=== PATIENT | male | born 1975 | race Caucasian/White ===

== ENCOUNTER 2023-08-01 07:23 | Day surgery (SDC) | payer OTHER ==
[2023-08-01] MEDS: Ringers Lactate 1,000 ML IV ONE (07:50)
[2023-08-01] MEDS ORDERED: LIDOCAINE 1% MPF 5 ML VIAL ONE (08:27)
[2023-08-01] MEDS ORDERED: propofoL 200 MG/20 ML VIAL IV ONE ×2 (08:27→09:10)
[2023-08-01 10:52] VITALS: BP 130/84; TEMP 97; O2SAT 96
--- NOTE | 2023-08-01 14:27 | EKG ---
Test Date: 2023-08-01 Test Time: 08:42:31 [place]: BOB MEASUREMENT RESULTS: Intervals: Rate: 63 VA: 162 QRSD: 84 QT: 402 QTc: 411 [place]: P: 39 VA: 162 QRS: -4 T: 31 INTERPRETIVE STATEMENTS: Normal sinus rhythm Normal ECG No previous ECG available for comparison Electronically Signed On 08-01-23 14:25:57 [employer] by Aryan Allen
== END 2023-08-01 10:00 | disposition home or self-care (01) ==
LOC: OR 07:23
PROVIDERS: ATTEND Surgery
PROC: 0DBN8ZX Excision of Sigmoid Colon, Via Natural or Artificial Opening Endoscopic, Diagnostic (ICD-10-PCS; principal; 2023-08-01 09:15)
DX: K62.5 Hemorrhage of anus and rectum (principal); I10 Essential (primary) hypertension; K64.4 Residual hemorrhoidal skin tags; K64.8 Other hemorrhoids; K57.30 Diverticulosis of large intestine without perforation or abscess without bleeding; D12.7 Benign neoplasm of rectosigmoid junction; D12.5 Benign neoplasm of sigmoid colon
CPT/HCPCS: 93005; 88305; 45385; J2704 ×2; J2001; J7120; 88304

== ENCOUNTER 2023-08-26 11:23 | Day surgery (SDC) | payer OTHER ==
[2023-08-24 11:32] LABS: Absolute Basophils 0.1 K/uL (0-0.5); Absolute Eosinophils 0.1 K/uL (0-0.5); Absolute Lymphocytes (CBC) 1.8 K/uL (0.7-4.9); Absolute Monocytes 0.6 K/uL (0.1-1.3); Absolute Neutrophil 3.5 K/uL (1.8-8.0); Basophils % 0.8 % (0-1.3); Eosinophils % 1.2 % (0-4.4); Hematocrit 43.4 % (39.6-49.0); Hemoglobin 15.2 g/dL (13.6-17.9); Lymphocytes % 29.4 % (15.3-44.8); MCH 30.2 pg (27.0-35.0); MCV 86.3 fL (80-100); MPV 6.5 fL (7.6-11.3); Monocytes % 9.4 % (3.3-12.3); Neutrophils % 59.2 % (41.7-73.7); Nucleated Red Blood Cells % 0.1 % (0-0); Platelets 254 thou/uL (152-406); RBC Red Blood Cell Count 5.03 M/uL (4.33-5.43); Red Cell Distribution Width 12.8 % (12.1-15.2)
--- NOTE | 2023-08-24 12:38 | RAD REPORT ---
EXAM DESCRIPTION: RAD - Chest Pa And Lat (2 Views) - 08/24/2023 11:41 am CLINICAL HISTORY: Pre op pending hernia repair. Hypertension COMPARISON: No Comparisons> TECHNIQUE: PA and lateral views of the chest were obtained. FINDINGS: The lungs are clear. Heart size is normal and central vasculature is within normal limits. No pleural effusion or pneumothorax seen. No acute bony finding noted. IMPRESSION: No acute cardiopulmonary process.
[2023-08-26] MEDS ORDERED: BUPIVACAINE 0.5% PF 10 ML VIAL ONE (11:42)
[2023-08-26] MEDS ORDERED: FENTANYL CITR 100 MCG/2 ML ONE (11:58)
[2023-08-26] MEDS ORDERED: dexAMETHasone 10 MG/ML VIAL ONE (11:58)
[2023-08-26] MEDS ORDERED: propofoL 200 MG/20 ML VIAL IV ONE (11:58)
[2023-08-26] MEDS ORDERED: KETAMINE HCL IN 0.9 % NACL 50 MG/5 ML SYRINGE IV ONE (11:58)
[2023-08-26] MEDS ORDERED: ONDANSETRON 4 MG/2 ML VIAL ONE (11:58)
[2023-08-26] MEDS ORDERED: ROCURONIUM 50 MG/5 ML VIAL IV ONE (11:58)
[2023-08-26] MEDS ORDERED: LIDOCAINE 1% MPF 5 ML VIAL ONE (11:58)
[2023-08-26] MEDS ORDERED: KETOROLAC 30 MG/ML INJ ONE (11:58)
[2023-08-26] MEDS ORDERED: MIDAZOLAM HCL 2 MG/2 ML INJ ONE (11:58)
[2023-08-26] MEDS: Ringers Lactate 1,000 ML IV ONE (12:00)
[2023-08-26] MEDS: CEFAZOLIN SODIUM 1 GM/VIAL ONE (13:15)
[2023-08-26] MEDS ORDERED: SUGAMMADEX SODIUM 200 MG/2 ML VIAL IV ONE (14:08)
--- NOTE | 2023-08-26 15:20 | P.BOP ---
Preoperative diagnosis: tender right inguinal hernia Postoperative diagnosis: same Primary procedure: Laparoscopic repair of tender right inguinal hernia with mesh Estimated blood loss: <10cc Specimen: none Findings: right inguinal hernia Anesthesia: General Complications: None Drain(s): Other Implants: 3D mesh Transferred to: Recovery Room Condition: Good
[2023-08-26] MEDS: CODEINE 30MG/APAP 300MG TAB ONE (16:00)
[2023-08-26 17:07] VITALS: BP 128/80; TEMP 97.1; O2SAT 100
--- NOTE | 2023-08-26 19:01 | DS ---
Date of Discharge: 08/26/2023 Diagnosis: Tender right inguinal hernia. Procedure: Laparoscopic repair of tender right inguinal hernia with mesh. Disposition: Home. Activity: As tolerated. No heavy lifting. Plan: Follow up in my office in 1 week. Call for an appointment at [phone]. Keep area dry for 48 hours, then may shower. Keep Steri-Strip intact. Cold compress to the right inguinal region for 24 hours. ANJEL/HALEY Voice ID: [id number] Report ID: [id number]
--- NOTE | 2023-08-26 19:01 | OP ---
Date of Procedure: 08/26/2023 Surgeon: Ang Syed MD Preoperative Diagnosis: Tender right inguinal hernia. Postoperative Diagnosis: Tender right inguinal hernia. Procedure: Laparoscopic repair of tender right inguinal hernia with mesh. Estimated Blood Loss: Less than 10 cc. Findings: Right inguinal hernia. Anesthesia: General plus local. Implant: 3D mesh. Indications For Procedure: This is a case of a male, who came to us with a tender right inguinal her pooja. The benefits, alternatives, and risks of laparoscopic, possible open repair fully explained, wh ich include, but not limited to, infection, bleeding, damage to adjacent structures, anesthesia compl ication, recurrence, OH, and even . He also understands this may not relieve any symptoms. He might need more than one surgical intervention. He understand the intention of using mesh in that re gion. The pros and cons of mesh placement were discussed with the patient. All the questions were a nswered to his satisfaction. He signed a consent. The area of concern was marked by me and the brittnee ent in the holding room. Description Of Procedure: Patient was brought to the operating room, placed in supine position. Ane sthesia was done without complication. Abdominal area was prepped and draped in the usual sterile fa shion. Marcaine 0.5% was injected for local anesthetic after a time-out. Incision was carried down until we found the anterior rectus sheath that was opened on the right side. The muscle was retracte d laterally to expose the posterior rectus sheath. The extraperitoneal space was gently developed wi th the help of blunt dissection and a balloon tipped trocar was placed in that region and inflated un beth direct visualization with the camera on the trocar. This was directed toward the pubic symphysis . The balloon was deflated and removed. The area was insufflated to create the extraperitoneal spac e. With the camera in, a 5 mm trocar was placed at the area of the pubis symphysis and another one h alfway between the first and the second one. The preperitoneal space was further developed by exposi ng the inferior epigastric vessels keeping them anterior. The Antwan's ligament was dissected latera lly to a junction with the iliac veins avoiding damage. The dissection continued inferiorly to the i liopubic tract with care to avoid damage to the femoral branch of the genitofemoral nerve and lateral femoral cutaneous nerve. The cord structures were carefully skeletonized. The hernia was identifie d, reduced by gentle traction into the peritoneal cavity. At that moment, I proceeded to introduce i nto the area, a 3D mesh medium size rolled in a complex cylinder and placed along the inferior aspect of the working space. The mesh will cover direct, indirect spaces. The mesh was secured in place l ateral and superior to the iliopubic tract and inferior and medial to the Antwan's ligament with the help of [employer]. After securing hemostasis, we proceeded then to stop the insufflation and allowed the air to escape by holding the mesh in place. The trocars were removed. Anterior rectus sheath wa s closed with the #1 Vicryl and the skin was approximated with 3-0 chromic. The sponge counts and in strument counts were correct. At the end of the case, testicles were within the scrotum. ANJEL/HALEY Voice ID: [id number] Report ID: [id number]
== END 2023-08-26 16:30 | disposition home or self-care (01) ==
LOC: OR 11:23
PROVIDERS: ATTEND Surgery
PROC: 0YU54JZ Supplement Right Inguinal Region with Synthetic Substitute, Percutaneous Endoscopic Approach (ICD-10-PCS; principal; 2023-08-26 12:30)
DX: K40.90 Unilateral inguinal hernia, without obstruction or gangrene, not specified as recurrent (principal)
CPT/HCPCS: 85025; 80048; 36415; 71046; 49650; J2704; J2001; J2250; J3010; J1100; J2405; J7120; J0690